=== PATIENT | female | born 1975 | race African-American/Black ===

== ENCOUNTER 2023-01-11 14:31 | Outpatient (CLI) | payer BC, SELFPAY ==
--- NOTE | 2023-01-11 14:40 | CRLHL7_ITS ---
For Patients: As a result of the Century Cures Act, medical imaging exams and procedure reports are released immediately into your electronic medical record. You may view this report before your referring provider. If you have questions, please contact your health care provider. BILATERAL SCREENING MAMMOGRAM WITH COMPUTER-AIDED DETECTION AND TOMOSYNTHESIS INDICATION: 47-year-old asymptomatic female. Baseline mammogram. No personal history of breast cancer or biopsies. TECHNIQUE: CC and MLO views were obtained. This digital study was evaluated with computer-aided detection. Digital breast tomosynthesis utilized. FINDINGS: BREAST COMPOSITION: The breasts are heterogeneously dense, which may obscure small masses. Multiple punctate widely scattered benign-appearing calcifications are identified in each breast. Within the outer LEFT breast at approximately the 3 o`clock position there is a 2 cm oval-shaped mass, possibly a cyst. A second cyst may be present at the 12 o`clock position close to the nipple measuring 1.1 cm, slice image 13 of 60 of the MLO view. The patient should be recalled for a true mL view of the LEFT breast as well as a spot view in the CC projection. Ultrasound may be required. IMPRESSION: 1. Nothing for malignancy on the RIGHT. 2. Oval-shaped mass mid outer LEFT breast 3 o`clock position possibly a cyst. Additional imaging and ultrasound suggested. 3. 1.1 cm nodule seen on the MLO view slice 13 of 60 possibly a small cyst in the 12 o`clock position LEFT breast. Ultrasound suggested. [facility] will contact the patient. BI-RADS Category 0: Incomplete - Need Additional Imaging evaluation and/or Prior Mammograms for Comparison Dictated by: Geovanny Wadsworth MD @01/12/2023 8:40:12 AM NATHAN/[email or web address] DW/Dictated by: Geovanny Wadsworth MD @ 01/12/2023 8:40:00 AM (Electronically Signed)
== END 2023-01-11 14:32 | disposition home or self-care (01) ==
PROVIDERS: Visit Provider Family Medicine
DX: Z12.31 Encounter for screening mammogram for malignant neoplasm of breast (principal); N63.20 Unspecified lump in the left breast, unspecified quadrant
CPT/HCPCS: 77063; 77067

== ENCOUNTER 2023-01-19 07:36 | Outpatient (CLI) | payer BC, SELFPAY ==
--- NOTE | 2023-01-19 07:45 | CRLHL7_ITS ---
For Patients: As a result of the Cures Act, medical imaging exams and procedure reports are released immediately into your electronic medical record. You may view this report before your referring provider. If you have questions, please contact your health care provider. DIGITAL DIAGNOSTIC LEFT MAMMGORAM USING TOMOSYNTHESIS AND COMPUTER-AIDED DETECTION LEFT BREAST ULTRASOUND CLINICAL HISTORY: LEFT breast mass/asymmetry. COMPARISON: 01/11/2023. TECHNIQUE: Digital LEFT mammogram in two projections. Tomosynthesis and CAD utilized. Real-time ultrasound imaging of LEFT breast with imaging documentation. BREAST COMPOSITION: The breast is heterogeneously dense, which may obscure small masses. FINDINGS: 3D spot compression CC and 3D true lateral LEFT breast mammogram images submitted. Benign calcifications are noted. No architectural distortion. Decreased conspicuity of the previously noted nodular density within the lateral LEFT breast. Targeted sonogram LEFT breast 3 o`clock 6 cm from the nipple performed. In this location, there is a simple anechoic cyst measuring 1.4 x 1.2 x 2.1 cm. An additional cyst is also present at 1 o`clock 4 cm from the nipple. IMPRESSION: Benign fibrocystic changes including a 2.1 cm simple cyst LEFT breast. No evidence of malignancy. RECOMMENDATIONS: Annual BILATERAL screening mammography. Results and recommendations discussed with the patient. BI-RADS Category 2: Benign A lay language report of this examination will be provided to the patient. Dictated by Rancho Colorado MD @ 01/19/2023 12:24:13 PM kalinaj/Dictated by: Rancho Colorado MD @ 01/19/2023 12:24:00 PM (Electronically Signed)
--- NOTE | 2023-01-19 08:15 | CRLHL7_ITS ---
For Patients: As a result of the Cures Act, medical imaging exams and procedure reports are released immediately into your electronic medical record. You may view this report before your referring provider. If you have questions, please contact your health care provider. PLEASE SEE DIGITAL DIAGNOSTIC LEFT MAMMOGRAM PERFORMED SAME DAY CRL:[email or web address] [email or web address]/Dictated by: Rancho Colorado MD @ 01/19/2023 12:24:00 PM (Electronically Signed)
== END 2023-01-19 07:37 | disposition home or self-care (01) ==
PROVIDERS: Visit Provider Family Medicine
DX: N63.20 Unspecified lump in the left breast, unspecified quadrant (principal); N60.02 Solitary cyst of left breast; R92.8 Other abnormal and inconclusive findings on diagnostic imaging of breast
CPT/HCPCS: 76642; 77065; G0279

== ENCOUNTER 2023-09-08 10:26 | Outpatient (CLI) | payer BC, SELFPAY | END 2023-09-08 10:27 | disposition home or self-care (01) | PROVIDERS: PCP Family Medicine; Visit Provider Family Medicine | DX: R53.83 Other fatigue (principal); N91.2 Amenorrhea, unspecified; F39 Unspecified mood [affective] disorder | CPT/HCPCS: 80053; 82306; 82607; 83001; 84443 ==

== ENCOUNTER 2024-09-05 15:46 | Outpatient (CLI) | payer BC, SELFPAY | END 2024-09-05 15:47 | disposition home or self-care (01) | PROVIDERS: PCP Family Medicine; Visit Provider Physician Assistant Medical | DX: R10.9 Unspecified abdominal pain (principal) | CPT/HCPCS: 80076; 83690 ==

== ENCOUNTER 2024-09-06 08:34 | Outpatient (CLI) | payer BC, SELFPAY | END 2024-09-06 08:35 | disposition home or self-care (01) | LOC: NFLDREF 09-10 00:51 | PROVIDERS: PCP Family Medicine; Referring Provider Family Medicine; Visit Provider Physician Assistant Medical | DX: R10.9 Unspecified abdominal pain (principal) | CPT/HCPCS: 87338 ==

== ENCOUNTER 2024-11-15 15:33 | Outpatient (CLI) | payer BC, SELFPAY ==
--- NOTE | 2024-11-15 15:30 | CRLHL7_ITS ---
For Patients: As a result of the Century Cures Act, medical imaging exams and procedure reports are released immediately into your electronic medical record. You may view this report before your referring provider. If you have questions, please contact your health care provider. INDICATION: Hearing loss of right ear TECHNIQUE: Non-contrast sagittal T1, axial FLAIR, FSE T2, DWI, posterior fossa CISS images provided. Supplemental post contrast T1 weighted axial and coronal high resolution images through the posterior fossa with fat saturation and post contrast whole head axial T1 weighted images submitted. Contrast: 15 mL Dotarem IV. COMPARISON: No comparisons. FINDINGS: The ventricles, sulci and gyri are of normal size, shape and contour for age. Midline structures are centrally located. Few small scattered foci of T2 prolongation in the right frontal and temporal lobe deep white matter are nonspecific. No convincing evidence of suspicious intra- or extra-axial fluid collections. No regions of restricted diffusion. Expected flow-voids within the cavernous carotids and basilar artery. No suspicious masses within the internal auditory canals. No suspicious regions of abnormal parenchymal enhancement. IMPRESSION: 1. No radiographic evidence of acute intracranial abnormalities. 2. Few small foci of T2 prolongation in the right frontal and temporal lobe subcortical/deep white matter are nonspecific but may represent sequela of migraine headaches, prior inflammation, or chronic small vessel disease. 3. The cerebellopontine angles, internal auditory canals, otic capsule structures, and cranial nerve cisternal segments are unremarkable. 4. No pathologic enhancement. Dictated by Rancho Mckeon MD @ 11/16/2024 11:12:13 AM (Electronically Signed)
== END 2024-11-15 15:34 | disposition home or self-care (01) ==
LOC: MRI 15:35
PROVIDERS: PCP Family Medicine; Visit Provider Otolaryngology
DX: H91.91 Unspecified hearing loss, right ear (principal); G93.9 Disorder of brain, unspecified
CPT/HCPCS: 70553; A9575

== ENCOUNTER 2025-04-09 10:36 | Outpatient (CLI) | payer BC, SELFPAY | END 2025-04-09 10:37 | disposition home or self-care (01) | PROVIDERS: PCP Family Medicine; Visit Provider Family Medicine | DX: M25.561 Pain in right knee (principal); Z13.6 Encounter for screening for cardiovascular disorders | CPT/HCPCS: 80053; 80061; 86038; 86140; 86431; 86618 ==

== ENCOUNTER 2025-04-29 14:02 | Outpatient (CLI) | payer BC, SELFPAY ==
--- NOTE | 2025-05-14 10:12 | W.PM.SLEEP ---
Sleep Study Details Details Interpreting Provider: Stephanie Date of Sleep Study: 04/29/25 Sleep Study Details: STUDY TYPE:? Home unattended ? BMI:? 30.9 ORDERING PROVIDER:Rylie Wright INDICATION:? Concern for sleep apnea ? SLEEP SUMMARY:? 284 minutes monitored RESPIRATORY SUMMARY:? AHI 6.8 per rule 1A, 3.6 per CMS guideline Low oxygen 91 Snoring 95% PERIODIC LIMB MOVEMENTS OF SLEEP:? Not recorded CARDIAC:? Range 57-128, mean 69.6 beats per minute IMPRESSION:? Mild obstructive sleep apnea. Tachycardia was also noted RECOMMENDATION: Further cardiac evaluation may be indicated. For the sleep apnea treatment options include CPAP dental appliance and/or airway expansion surgery.
== END 2025-04-29 14:03 | disposition home or self-care (01) ==
LOC: SLEEP 14:03
PROVIDERS: PCP Family Medicine; Visit Provider Family Medicine
DX: G47.33 Obstructive sleep apnea (adult) (pediatric) (principal)
CPT/HCPCS: 95806